=== PATIENT | male | born 1980 | race Caucasian/White ===

== ENCOUNTER 2017-01-25 08:33 | Emergency (ER) | payer OTHER ==
[2017-01-25] MEDS ORDERED: IPRATROPIUM/ALBUTEROL 3 ML NEB INH STA (08:55)
[2017-01-25] MEDS ORDERED: DEXAMETHASONE 10 MG/ML VIAL PO STA (08:56)
--- NOTE | 2017-01-25 09:00 | ED Physician Documentation ---
PD HPI DYSPNEA - Stated complaint Stated Complaint: SOA/COUGH - Chief complaint Chief Complaint: Resp - History obtained from History obtained from: Patient - History of Present Illness Timing - onset: How many weeks ago (3) Timing - duration: Weeks (3) Timing - details: Still present Worsened by: Coughing Associated symptoms: Cough. No: Fever, Chest pain / discomfort Recently seen: Clinic (Was seen in clinic 2 weeks ago and treated with nebulizer which provided temporary improvement. He was prescribed albuterol inhaler and prednisone. He has not completed the prednisone that was prescribed.) - Treatment prior to arrival Treatment prior to arrival: Albuterol inhaler. - Additional information Additional information: The patient is a 36-year-old male who presents with cough and shortness of breath that has been persistent for the past 3 weeks. His cough is nonproductive of sputum. He denies fever, chest pain, nausea or vomiting. He denies history of similar symptoms in the past. He was seen in a walk-in clinic in [place] 2 weeks ago and was treated with DuoNeb nebulizer, which provided temporary improvement for about 24 hours. He was prescribed albuterol nebulizer and prednisone, which he states is not working. Social history is significant for cigarette smoking. 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 Review of Systems Constitutional: denies: Fever Ears: denies: Tinnitus/ringing Nose: denies: Congestion Throat: denies: Sore throat Cardiac: denies: Chest pain / pressure Respiratory: reports: Dyspnea, Cough, Wheezing GI: denies: Abdominal Pain, Nausea, Vomiting : denies: Dysuria Skin: denies: Rash Musculoskeletal: denies: Back pain, Extremity swelling Neurologic: denies: Focal weakness, Numbness, Headache PD PAST MEDICAL HISTORY - Past Medical History Past Medical History: No Cardiovascular: None Neuro: None Endocrine/Autoimmune: None GI: None - Past Surgical History Past Surgical History: No - Present Medications Home Medications: Ambulatory Orders Medication Instructions Recorded Confirmed Albuterol Sulfate [Proventil Hfa 1 - 2 puffs INH Q4H PRN #1 inhaler 01/25/17 Inhaler] Albuterol Sulfate [Proventil Hfa 1 puffs PO BID 01/25/17 01/25/17 Inhaler] Inhaler, Assist Devices 1 each MC PRN PRN #1 spacer 01/25/17 [Aerochamber Mini] Prednisone 20 mg PO DAILY 01/25/17 01/25/17 - Allergies Allergies/Adverse Reactions: Allergies Allergy/AdvReac Type Severity Reaction Status Date / Time No Known Drug Allergies Allergy Verified 02/26/14 15:33 - Social History Does the pt smoke?: Yes Smoking Status: Current every day smoker Does the pt drink ETOH?: No Does the pt have substance abuse?: Yes Substance Use and Type: Marijuana PD ED PE NORMAL - Vitals Vital signs reviewed: Yes (normal) - General General: Alert and oriented X 3, Well developed/nourished - HEENT HEENT: Atraumatic, EOMI, Pharynx benign - Neck Neck: No adenopathy, No JVD - Cardiac Cardiac: RRR, No murmur - Respiratory Respiratory: Other (Diffuse aspiratory wheezing bilaterally, with prolonged expiratory phase.) - Abdomen Abdomen: Soft, Non tender - Derm Derm: No rash - Extremities Extremities: No edema, No calf tenderness / cord - Neuro Neuro: Alert and oriented X 3, No motor deficit, Normal speech Results - Vitals Vitals: Oxygen O2 Source Room air - Rads (name of study) 2-view CXR Radiology: Prelim report reviewed, EMP read contemporaneously, See rad report ( Unremarkable two-view chest.) PD MEDICAL DECISION MAKING - ED course Complexity details: reviewed results, re-evaluated patient, considered differential, d/w patient, d/w family ED course: The patient's presentation is most consistent with asthmatic bronchitis. His presentation does not suggest pneumonia, and his chest x-ray is negative. I doubt pulmonary embolus. Treatment in the emergency department included administration of DuoNeb nebulizer, and dexamethasone 10 mg orally. His symptoms significantly improved with the above treatment, and on reexamination his expiratory wheezing was almost completely resolved. He is being discharged with prescription for albuterol inhaler with AeroChamber. He will resume taking the prednisone that was previously prescribed for him. 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 I also discussed with him the importance of cessation of cigarette smoking. Departure - Departure Disposition: 01 Home, Self Care Clinical Impression: Asthmatic bronchitis with acute exacerbation Qualifiers: Asthma severity: unspecified severity Qualified Code(s): J45.901 - Unspecified asthma with (acute) exacerbation Condition: Stable Instructions: ED Bronchitis Asthmatic Follow-Up: [facility] [Provider Group] Prescriptions: Inhaler, Assist Devices [Aerochamber Mini] 1 each MC PRN PRN #1 spacer PRN Reason: Wheezing Albuterol Sulfate [Proventil Hfa Inhaler] 1 - 2 puffs INH Q4H PRN #1 inhaler PRN Reason: Shortness Of Air/Wheezing Comments: Try to stop smoking cigarettes. Use albuterol inhaler as prescribed. Use the spacer device. Take prednisone as previously prescribed until it is gone. Schedule follow-up appointment with primary physician within 2 weeks. Return to the emergency department if he develops increasing difficulty breathing, or otherwise worsening symptoms. Discharge Date/Time: 01/25/17 10:10
[2017-01-25] MEDS ORDERED: IPRATROPIUM/ALBUTEROL 3 ML NEB INH ONE (09:07)
[2017-01-25] MEDS ORDERED: DEXAMETHASONE 10 MG/ML VIAL ONE (09:16)
--- NOTE | 2017-01-25 09:42 | XRAY Preliminary Report ---
Exam: XR Chest 2 View PA/LAT IMPRESSION: 1. Unremarkable two-view chest. [facility] SITE ID: [id number]
--- NOTE | 2017-01-25 09:45 | XRAY Report ---
EXAM: CHEST RADIOGRAPHY EXAM DATE: 01/25/2017 09:29 AM. CLINICAL HISTORY: Cough, dyspnea. COMPARISON: None. TECHNIQUE: 2 views. FINDINGS: Lungs/Pleura: Clear lungs. No pleural effusion or pneumothorax. Normal volumes. Mediastinum: Heart and mediastinal contours are unremarkable. Bones: No significant findings. IMPRESSION: 1. Unremarkable two-view chest. [facility] Referring Provider Line: [phone] SITE ID: [id number]
[2017-01-25 10:11] VITALS: BP 118/74
== END 2017-01-25 10:10 | disposition home or self-care (01) ==
LOC: ED 08:33
DX: J45.901 Unspecified asthma with (acute) exacerbation (principal); F17.200 Nicotine dependence, unspecified, uncomplicated
CPT/HCPCS: 71020; 99283; 99284; J7620

== ENCOUNTER 2017-02-12 21:34 | Emergency (ER) | payer OTHER ==
[2017-02-12] MEDS ORDERED: IPRATROPIUM/ALBUTEROL 3 ML NEB INH STA ×2 (21:52→22:18)
[2017-02-12] MEDS ORDERED: IPRATROPIUM/ALBUTEROL 3 ML NEB INH ONE ×2 (22:07→22:24)
[2017-02-12] MEDS ORDERED: predniSONE 20 MG TABLET PO STA (22:19)
[2017-02-12] MEDS ORDERED: predniSONE 20 MG TABLET ONE (22:55)
[2017-02-12] MEDS ORDERED: ALBUTEROL NEB 2.5 MG/3 ML INH STA (23:02)
[2017-02-12] MEDS ORDERED: ALBUTEROL NEB 2.5 MG/3 ML INH ONE (23:36)
--- NOTE | 2017-02-12 23:59 | ED Physician Documentation ---
PD HPI DYSPNEA - Stated complaint Stated Complaint: SORE THROAT/COUGH - Chief complaint Chief Complaint: General - History obtained from History obtained from: Patient, Family - History of Present Illness Timing - onset: Yesterday Timing - onset during: Rest Timing - details: Gradual onset, Still present Inciting event(s): Out of meds, Exposure (ie smoke) Improved by: O2, Inhaler/neb Associated symptoms: Cough, Wheezing. No: Fever Similar symptoms before: Work up / diagnostics, Treatment Recently seen: Not recently seen - Additional information Additional information: Patient is a 36 year old male with a history of asthma who is presenting to the emergency department for wheezing, cough and shortness of breath. Patient states that it has been going on for the last couple days. Patient states that his inhaler isnt working. Patient states that he still actively smokes. Review of Systems Constitutional: denies: Fever, Chills Eyes: denies: Photophobia Ears: denies: Ear pain, Drainage/discharge Nose: reports: Congestion. denies: Epistaxis, Sinus pressure / pain Throat: reports: Sore throat. denies: Dental pain / toothache Cardiac: denies: Chest pain / pressure, Palpitations Respiratory: reports: Dyspnea, Cough, Wheezing GI: denies: Nausea, Vomiting : reports: Reviewed and negative Skin: reports: Reviewed and negative Musculoskeletal: denies: Neck pain, Back pain, Extremity pain Neurologic: denies: Generalized weakness, Focal weakness, Altered mental status , Headache Immunocompromised: denies: Immunocompromised PD PAST MEDICAL HISTORY - Past Medical History Past Medical History: No Cardiovascular: None Neuro: None Endocrine/Autoimmune: None GI: None - Past Surgical History Past Surgical History: No - Present Medications Home Medications: Ambulatory Orders Medication Instructions Recorded Confirmed Albuterol Sulfate [Proventil Hfa 1 - 2 puffs INH Q4H PRN #1 inhaler 01/25/17 Inhaler] Albuterol Sulfate [Proventil Hfa 1 puffs PO BID 01/25/17 01/25/17 Inhaler] Inhaler, Assist Devices 1 each MC PRN PRN #1 spacer 01/25/17 [Aerochamber Mini] Prednisone 20 mg PO DAILY 01/25/17 01/25/17 Albuterol Sulfate [Proventil Hfa 1 - 2 puffs INH Q4H PRN #2 inhaler 02/13/17 Inhaler] Benzonatate [Tessalon] 100 mg PO TID #14 capsule 02/13/17 Prednisone 40 mg PO DAILY 5 Days tablet 02/13/17 - Allergies Allergies/Adverse Reactions: Allergies Allergy/AdvReac Type Severity Reaction Status Date / Time No Known Drug Allergies Allergy Verified 02/12/17 21:49 - Social History Does the pt smoke?: Yes Smoking Status: Current every day smoker Does the pt drink ETOH?: No Does the pt have substance abuse?: Yes Substance Use and Type: Marijuana - Immunizations Immunizations are current?: Yes - POLST Patient has POLST: No PD ED PE NORMAL - Vitals Vital signs reviewed: Yes - General General: Alert and oriented X 3, Well developed/nourished - HEENT HEENT: Atraumatic, PERRL - Neck Neck: Supple, no meningeal sign, No JVD - Cardiac Cardiac: RRR, No murmur - Abdomen Abdomen: Soft, Non tender, Non distended - Derm Derm: Normal color, Warm and dry, No rash - Extremities Extremities: No deformity - Neuro Neuro: Alert and oriented X 3, No motor deficit, No sensory deficit, Normal speech - Psych Psych: Normal mood, Normal affect PD ED PE EXPANDED - Respiratory Respiratory: Accessory mm use, Wheezing, Rhonchi, Right upper lobe, Right middle lobe, Right lower lobe, Left upper lobe Results - Vitals Vitals: Vital Signs - 24 hr 02/12/17 02/12/17 02/12/17 21:42 22:05 22:20 Temperature 36.4 C L Heart Rate 115 H 113 H 98 Respiratory 16 18 18 Rate Blood Pressure 131/86 H O2 Saturation 95 02/12/17 02/12/17 02/13/17 23:30 23:49 00:05 Temperature Heart Rate 102 H 101 H Respiratory 18 17 17 Rate Blood Pressure 121/79 O2 Saturation 97 Oxygen O2 Source Room air PD MEDICAL DECISION MAKING - ED course Complexity details: reviewed old records, reviewed results, re-evaluated patient , considered differential, d/w patient, d/w family ED course: Patient was seen and examined at bedside. Patient was treated with a duoneb and steroids. Patient had persistent symptoms and was treated with additional 2 duonebs. Patient responded well to the therapy but still had some wheezing. Patient was started on three albuterol inhalers. Patient responded well and stated he was feeling much better. Prescriptions were written and patient was stable for discharge with outpatient follow up. Departure - Departure Disposition: 01 Home, Self Care Clinical Impression: Asthmatic bronchitis with acute exacerbation Condition: Good Instructions: ED Bronchitis Asthmatic Follow-Up: primary,care provider [Other] - Within 3 Days Prescriptions: Albuterol Sulfate [Proventil Hfa Inhaler] 1 - 2 puffs INH Q4H PRN #2 inhaler PRN Reason: Shortness Of Air/Wheezing Benzonatate [Tessalon] 100 mg PO TID #14 capsule Prednisone 40 mg PO DAILY 5 Days tablet Comments: Your symptoms today are being caused by an exacerbation of your asthma and acute bronchitis. You will need to be on steroids for the next few days. You should continue with the home albuterol every 2 hours as needed. You should follow up with your pmd. You should avoid smoking or any other triggers. You may return to the emergency department at any time as needed for new, worsening or uncontrollable symptoms. Forms: Activity restrictions Discharge Date/Time: 02/13/17 00:05
[2017-02-13 00:16] VITALS: BP 121/79
== END 2017-02-13 00:05 | disposition home or self-care (01) ==
LOC: ED 21:34
DX: J45.901 Unspecified asthma with (acute) exacerbation (principal); F17.200 Nicotine dependence, unspecified, uncomplicated
CPT/HCPCS: 94640; 99283; J7512; J7613; J7620

== ENCOUNTER 2017-03-16 08:12 | Emergency (ER) | payer OTHER ==
--- NOTE | 2017-03-16 08:25 | ED Physician Documentation ---
PD HPI URI - Stated complaint Stated Complaint: ABD/RIB PX COUGH - Chief complaint Chief Complaint: Resp - History obtained from History obtained from: Patient - History of Present Illness Timing - onset: How many months ago (couple months of cough with worse at times. Seen in ED a few times past 2-3 months for cough and wheezing. Seen 3 days ago with Rx steroid, inhaler, and Zpack for ear infection. Has had persistent cough and this mraurea felt abrupt sharp pain right ribs laterally with cough.) Timing duration: Days (worse the past few days), Months Timing details: Abrupt onset (of the right chest/rib pain today), Gradual onset (oif the cough) Associated symptoms: Productive cough (dawkins colored sputum), Chest pain (today) , Dyspnea. No: Fever, Hemoptysis, Bilateral edema Contributing factors: Sick contact Worsened by: Activity Similar symptoms before: Diagnosis (bronchitis, smoking, asthma) Recently seen: Emergency Dept Review of Systems Constitutional: reports: Myalgias. denies: Fever, Chills Nose: reports: Congestion. denies: Rhinorrhea / runny nose Throat: denies: Sore throat Cardiac: reports: Chest pain / pressure (today, right ribs.) Respiratory: reports: Dyspnea, Cough, Wheezing GI: denies: Abdominal Pain, Nausea, Vomiting, Diarrhea Skin: denies: Rash, Lesions PD PAST MEDICAL HISTORY - Past Medical History Cardiovascular: None Neuro: None Endocrine/Autoimmune: None GI: None - Past Surgical History Past Surgical History: No - Present Medications Home Medications: Ambulatory Orders Medication Instructions Recorded Confirmed predniSONE [Prednisone] 20 mg PO DAILY 01/25/17 03/16/17 Albuterol Sulfate [Proventil Hfa 1 - 2 puffs INH Q4H PRN #2 inhaler 02/13/1702/20 Inhaler] predniSONE [Prednisone] 40 mg PO DAILY 5 Days tablet 02/13/17 03/16/17 Azithromycin [Zithromax] 250 mg PO DAILY #6 tablet 03/13/17 03/16/17 Benzonatate [Tessalon] 100 - 200 mg PO TID PRN #20 capsule 03/13/17 03/16/17 predniSONE [Deltasone] 10 mg PO DAILY #26 tablet 03/13/17 03/16/17 HYDROcod/ACETAM 5/325 [[place] 5/325] 1 tab PO Q6H PRN #15 tablet 03/16/17 Naproxen 375 mg PO BID #20 tablet 03/16/17 - Allergies Allergies/Adverse Reactions: Allergies Allergy/AdvReac Type Severity Reaction Status Date / Time No Known Drug Allergies Allergy Verified 03/16/17 08:19 - Social History Does the pt smoke?: Yes Smoking Status: Current every day smoker Does the pt drink ETOH?: No Does the pt have substance abuse?: Yes - Immunizations Immunizations are current?: Yes - POLST Patient has POLST: No PD ED PE NORMAL - Vitals Vital signs reviewed: Yes - General General: Alert and oriented X 3, Well developed/nourished, Other (appears in pain with breathing, due to right lateral rib area. ) - Neck Neck: Supple, no meningeal sign, No adenopathy - Cardiac Cardiac: RRR, No murmur - Respiratory Respiratory: Other (wheezing diffusely. No coarse sounds. ) - Abdomen Abdomen: Soft, Non tender - Back Back: No CVA TTP - Derm Derm: Normal color, Warm and dry - Extremities Extremities: No tenderness to palpate - Neuro Neuro: Alert and oriented X 3, No motor deficit, Normal speech Results - Vitals Vitals: Vital Signs - 24 hr 03/16/17 03/16/17 03/16/17 08:14 09:43 10:33 Temperature 36.2 C L Heart Rate 94 88 87 Respiratory 16 16 16 Rate Blood Pressure 139/88 H 124/75 O2 Saturation 99 96 Oxygen O2 Source Room air - Rads (name of study) chest Radiology: Prelim report reviewed, EMP read contemporaneously (no acute process seen) Departure - Departure Disposition: 01 Home, Self Care Clinical Impression: Right-sided chest pain Asthmatic bronchitis with acute exacerbation Qualifiers: Asthma severity: moderate Asthma persistence: persistent Qualified Code(s): J45.41 - Moderate persistent asthma with (acute) exacerbation Condition: Stable Record reviewed to determine appropriate education?: Yes Instructions: ED Chest Pain Pleurisy Follow-Up: Maddie Nation PA-C [Primary Care Provider] - Prescriptions: HYDROcod/ACETAM 5/325 [[place] 5/325] 1 tab PO Q6H PRN #15 tablet PRN Reason: Pain Naproxen 375 mg PO BID #20 tablet Comments: Drink lots of fluids. Continue your current medications with the exception of holding your prednisone today and resuming the course of it tomorrow. Use naproxen twice daily for pain. Add Tylenol or hydrocodone if needed for pain and cough. Your chest x-ray appears normal without pneumonia, rib fracture, collapsed lung. However can still hurt quite a bit from muscle strain or inflammation around the lung. Discharge Date/Time: 03/16/17 10:33
[2017-03-16] MEDS ORDERED: HYDROcod/ACETAM 5/325 MG TABLET PO STA (08:37)
[2017-03-16] MEDS ORDERED: ALBUTEROL NEB 2.5 MG/3 ML INH STA (08:37)
[2017-03-16] MEDS ORDERED: BENZONATATE 100 MG CAPSULE PO STA (08:37)
[2017-03-16] MEDS ORDERED: KETOROLAC 30 MG/ML VIAL IM STA (08:37)
[2017-03-16] MEDS ORDERED: DEXAMETHASONE 10 MG/ML VIAL PO STA (08:49)
[2017-03-16] MEDS ORDERED: IBUPROFEN 600 MG TABLET PO STA (08:51)
[2017-03-16] MEDS ORDERED: BENZONATATE 100 MG CAPSULE PO ONE (08:58)
[2017-03-16] MEDS ORDERED: HYDROcod/ACETAM 5/325 MG TABLET ONE (08:59)
[2017-03-16] MEDS ORDERED: IBUPROFEN 600 MG TABLET PO ONE (08:59)
--- NOTE | 2017-03-16 08:59 | XRAY Preliminary Report ---
Exam: XR CHEST 2 VIEW PA/LAT IMPRESSION: Normal 2-view chest radiography. [facility] SITE ID: [id number]
[2017-03-16] MEDS ORDERED: ALBUTEROL NEB 2.5 MG/3 ML INH ONE (09:01)
--- NOTE | 2017-03-16 09:01 | XRAY Report ---
EXAM: CHEST RADIOGRAPHY EXAM DATE: 03/16/2017 08:45 AM. CLINICAL HISTORY: Right rib pain 1 day after cough. Cough for 3 months. COMPARISON: 03/13/2017. TECHNIQUE: 2 views. FINDINGS: Lungs/Pleura: No focal opacities evident. No pleural effusion. No pneumothorax. Normal volumes. Mediastinum: Heart and mediastinal contours are unremarkable. Other: No displaced rib fracture evident. IMPRESSION: Normal 2-view chest radiography. [facility] Referring Provider Line: [phone] SITE ID: [id number]
[2017-03-16] MEDS ORDERED: DEXAMETHASONE 10 MG/ML VIAL ONE (09:05)
[2017-03-16] MEDS ORDERED: CHERRY SYRUP 10 ML UDC PO ONE (09:05)
[2017-03-16 10:33] VITALS: BP 124/75
== END 2017-03-16 10:33 | disposition home or self-care (01) ==
LOC: ED 08:12
DX: J45.41 Moderate persistent asthma with (acute) exacerbation (principal); R07.9 Chest pain, unspecified; F17.200 Nicotine dependence, unspecified, uncomplicated
CPT/HCPCS: 71020; 94640; 99283; 99284; A9270; J7613

== ENCOUNTER 2017-04-04 23:53 | Observation (INO) | payer OTHER ==
[2017-04-05] MEDS ORDERED: IPRATROPIUM/ALBUTEROL 3 ML NEB INH STA (00:12)
[2017-04-05] MEDS ORDERED: IPRATROPIUM/ALBUTEROL 3 ML NEB INH ONE (00:30)
--- NOTE | 2017-04-05 00:34 | ED Physician Documentation ---
PD HPI DYSPNEA - Stated complaint Stated Complaint: COUGH,NEAR SYNCOPE - Chief complaint Chief Complaint: Resp - History obtained from History obtained from: Patient, Family - History of Present Illness Timing - onset: Chronic Timing - onset during: Rest Timing - details: Gradual onset, Still present Inciting event(s): URI, Exposure (ie smoke) Improved by: O2, Inhaler/neb Worsened by: Exertion, Coughing Associated symptoms: Cough, Wheezing. No: Fever, Chest pain / discomfort, Diaphoresis Similar symptoms before: Work up / diagnostics, Treatment, Follow up Recently seen: Clinic - Additional information Additional information: Patient is a 37 year old male diagnosed with severe asthma who is presenting to the emergency department for wheezing and syncope. According to patient and girlfriend tonight patient had a coughing fit and due to all the coughing the patient had a syncopal episode. Patient states that he has quit smoking over the last couple of weeks but states that he did smoke marijuana just prior to the episode. 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 patient states that there are a few other people at work with similar symptoms. 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 Patient does admit to smoking marijuana daily. Review of Systems Constitutional: denies: Fever, Chills Eyes: denies: Decreased vision, Photophobia Ears: denies: Ear pain, Drainage/discharge Nose: denies: Congestion Throat: denies: Sore throat Cardiac: denies: Chest pain / pressure, Palpitations Respiratory: reports: Dyspnea, Cough, Wheezing GI: denies: Nausea, Vomiting : denies: Dysuria, Frequency, Hesitancy Skin: denies: Rash, Lesions Neurologic: reports: Syncope. denies: Headache, Head injury Immunocompromised: denies: Immunocompromised PD PAST MEDICAL HISTORY - Past Medical History Past Medical History: Yes Cardiovascular: None Respiratory: Asthma Neuro: None Endocrine/Autoimmune: None GI: None - Past Surgical History Past Surgical History: No - Present Medications Home Medications: Ambulatory Orders Medication Instructions Recorded Confirmed predniSONE [Prednisone] 20 mg PO DAILY 01/25/17 03/16/17 Albuterol Sulfate [Proventil Hfa 1 - 2 puffs INH Q4H PRN #2 inhaler 02/13/1702/20 Inhaler] predniSONE [Prednisone] 40 mg PO DAILY 5 Days tablet 02/13/17 03/16/17 Azithromycin [Zithromax] 250 mg PO DAILY #6 tablet 03/13/17 03/16/17 Benzonatate [Tessalon] 100 - 200 mg PO TID PRN #20 capsule 03/13/17 03/16/17 predniSONE [Deltasone] 10 mg PO DAILY #26 tablet 03/13/17 03/16/17 HYDROcod/ACETAM 5/325 [[place] 5/325] 1 tab PO Q6H PRN #15 tablet 03/16/17 Naproxen 375 mg PO BID #20 tablet 03/16/17 predniSONE [Prednisone] 40 mg PO DAILY 5 Days tablet 04/05/17 - Allergies Allergies/Adverse Reactions: Allergies Allergy/AdvReac Type Severity Reaction Status Date / Time No Known Drug Allergies Allergy Verified 03/16/17 08:19 - Social History Does the pt smoke?: Yes Smoking Status: Current some day smoker Does the pt drink ETOH?: No Does the pt have substance abuse?: Yes - Immunizations Immunizations are current?: Yes - POLST Patient has POLST: No PD ED PE NORMAL - Vitals Vital signs reviewed: Yes - General General: Alert and oriented X 3, Well developed/nourished - HEENT HEENT: Atraumatic, PERRL, Moist mucous membranes - Neck Neck: Supple, no meningeal sign, No JVD - Cardiac Cardiac: RRR, No murmur - Abdomen Abdomen: Soft, Non tender, Non distended - Derm Derm: Normal color, Warm and dry, No rash - Extremities Extremities: No deformity, Normal ROM s pain, No calf tenderness / cord - Neuro Neuro: Alert and oriented X 3, No motor deficit, No sensory deficit, Normal speech - Psych Psych: Normal mood PD ED PE EXPANDED - Respiratory Respiratory: Wheezing, Rhonchi, Right upper lobe, Right middle lobe, Right lower lobe, Left upper lobe, Left lower lobe. No: Accessory mm use Results - Vitals Vitals: Vital Signs - 24 hr 04/05/17 04/05/17 04/05/17 00:00 00:20 01:20 Temperature 36.9 C Heart Rate 102 H 98 95 Respiratory 20 18 18 Rate Blood Pressure 151/93 H O2 Saturation 94 Oxygen O2 Source Room air - Rads (name of study) chest x-ray Radiology: Final report received (normal chest x-ray) PD MEDICAL DECISION MAKING - ED course Complexity details: reviewed old records, reviewed results, re-evaluated patient , considered differential, d/w patient, d/w family ED course: Patient was seen and examined at bedside. Patient was not hypoxic but he had diffuse wheezing. three duonebs were ordered. After the treatments patient stated that he felt much better but his wheezing was still significant. patient was treated with 3 albuterol treatments, solumedrol, terbutaline, magnesium and a chest x-ray was ordered. Chest x-ray was within normal limits and sputum cultures were sent. Patient responded very well to the therapy and his wheezing decreased significantly. Patient stated that he felt much better and was ready to go home. Patient had good oxygenation, minimal wheeze and was stable for discharge with outpatient follow up. Departure - Departure Disposition: 01 Home, Self Care Clinical Impression: Asthmatic bronchitis with acute exacerbation Condition: Good Instructions: ED Bronchitis Asthmatic Follow-Up: Maddie Nation PA-C [Primary Care Provider] - Within 3 Days Prescriptions: predniSONE [Prednisone] 40 mg PO DAILY 5 Days tablet Comments: Your symptoms today are being caused by an exacerbation of your asthma and bronchitis. You will need to avoid any triggers and any type of smoke. If your sputum cultures results are abnormal you will be called in the next three days. Otherwise continue with your steroids any your home medications. You should follow up with your pmd and you may return to the emergency department at any time if necessary for new, worsening or uncontrollable symptoms.
[2017-04-05] MEDS ORDERED: ALBUTEROL NEB 2.5 MG/3 ML INH STA (01:01)
[2017-04-05] MEDS ORDERED: MAGNESIUM SULFATE 2 GRAM 2 GM/50 ML BAG IV ONE ×2 (01:01→01:22)
[2017-04-05] MEDS ORDERED: methylPREDNISolone SUCCINATE 125 MG/2 ML VIAL IVP STA (01:02)
[2017-04-05] MEDS ORDERED: TERBUTALINE 1 MG/ML VIAL SUBQ ONE (01:14)
[2017-04-05] MEDS ORDERED: methylPREDNISolone SUCCINATE 125 MG/2 ML VIAL ONE (01:22)
[2017-04-05] MEDS ORDERED: ALBUTEROL NEB 2.5 MG/3 ML INH ONE (01:25)
--- NOTE | 2017-04-05 01:33 | XRAY Preliminary Report ---
Exam: XR CHEST 2 VIEW PA/LAT IMPRESSION: Stable normal appearance of the chest. [facility] SITE ID: [id number]
--- NOTE | 2017-04-05 01:35 | XRAY Report ---
EXAM: CHEST RADIOGRAPHY EXAM DATE: 04/05/2017 01:16 AM. CLINICAL HISTORY: Persist cough, shortness of breath. Shortness of breath. COMPARISON: 03/16/2017 TECHNIQUE: 2 views. FINDINGS: Lungs/Pleura: No focal opacities evident. No pleural effusion. No pneumothorax. Normal volumes. Mediastinum: Heart and mediastinal contours are unremarkable. Other: None. IMPRESSION: Stable normal appearance of the chest. [facility] Referring Provider Line: [phone] SITE ID: [id number]
[2017-04-05] MEDS ORDERED: ACETAMINOPHEN 325 MG TABLET PO PRN (04:02)
[2017-04-05] MEDS ORDERED: ONDANSETRON 4 MG/2 ML VIAL IVP PRN (04:02)
[2017-04-05] MEDS ORDERED: SODIUM CHLORIDE FLUSH 0.9% 10 ML SYRINGE IVP PRN (04:02)
[2017-04-05] MEDS ORDERED: guaiFENesin/DEXTROMETHORPHAN 10 ML UDC PO PRN (04:07)
[2017-04-05 04:28] LABS: BASOPHILS % (AUTO) 0.4 %; EOSINOPHILS # (AUTO) 0.1 10^3/uL (0.0-0.7); EOSINOPHILS % (AUTO) 1.1 %; LYMPHOCYTES % (AUTO) 8.4 %; MEAN CORPUSCULAR HEMOGLOBIN 31.3 pg (27.0-31.0); MEAN CORPUSCULAR HGB CONC 33.3 g/dL (32.0-36.0); MEAN CORPUSCULAR VOLUME 93.9 fL (80.0-94.0); MEAN PLATELET VOLUME 7.6 fL (7.4-11.4); MONOCYTES # (AUTO) 0.3 10^3/uL (0.0-1.0); MONOCYTES % (AUTO) 2.3 %; NEUTROPHILS # (AUTO) 10.1 10^3/uL (1.5-6.6); NEUTROPHILS % (AUTO) 87.8 %; RED BLOOD COUNT 4.79 10^6/uL (4.70-6.10); RED CELL DISTRIBUTION WIDTH 12.9 % (12.0-15.0); UNCORRECTED WHITE BLOOD COUNT 11.4 x10^3/uL; WHITE BLOOD COUNT 11.4 x10^3/uL (4.8-10.8)
[2017-04-05] MEDS: IPRATROPIUM/ALBUTEROL 3 ML NEB INH SCH ×3 (04:30→10:00)
[2017-04-05 04:42] LABS: ALBUMIN/GLOBULIN RATIO 1.4 (1.0-2.2); BILIRUBIN,TOTAL 0.8 mg/dL (0.2-1.0); CALCIUM 9.2 mg/dL (8.5-10.3); POTASSIUM 3.4 mmol/L (3.5-5.0); TOTAL PROTEIN 7.7 g/dL (6.7-8.2)
[2017-04-05] MEDS: guaiFENesin 600 MG TABLET PO SCH ×2 (04:50→08:52)
[2017-04-05] MEDS ORDERED: BUDESONIDE/FORMOTEROL 160/4.5 MCG INHALER INH SCH (05:00)
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
[2017-04-05] MEDS ORDERED: PANTOPRAZOLE 40 MG TABLET PO SCH (07:00)
[2017-04-05] MEDS ORDERED: FORMOTEROL FUMARATE NEB 20 MCG/2 ML INH SCH (07:00)
[2017-04-05] MEDS ORDERED: BUDESONIDE 0.5 MG/2 ML NEB INH SCH (07:00)
[2017-04-05] MEDS: methylPREDNISolone SUCCINATE 40 MG/ML VIAL IVP SCH ×2 (07:41→13:10)
[2017-04-05] MEDS: SODIUM CHLORIDE FLUSH 0.9% 10 ML SYRINGE IVP SCH ×2 (07:43→13:10)
[2017-04-05] MEDS ORDERED: ALBUTEROL NEB 2.5 MG/3 ML INH PRN (08:42)
[2017-04-05] MEDS ORDERED: ENOXAPARIN 40 MG/0.4 ML SYRINGE SUBQ SCH (09:00)
[2017-04-05] MEDS ORDERED: POLYETHYLENE GLYCOL 3350 17 GM PACKET PO SCH (09:00)
[2017-04-05] MEDS ORDERED: POTASSIUM CHLORIDE 20 MEQ TABLET PO SCH (09:00)
--- NOTE | 2017-04-05 11:33 | XRAY Report ---
FRONTAL CHEST: 04/05/2017 CLINICAL INDICATION: Cough, shortness of breath. COMPARISON: Film of 0106 hours the same day. FINDINGS: Frontal view of the chest demonstrates a normal cardiac silhouette. The lungs remain soraya r. No effusion or pneumothorax is seen. IMPRESSION: NORMAL CHEST, UNCHANGED. JOB #: [id number] EXT JOB #:[id number]
[2017-04-05 14:13] VITALS: BP 125/73
--- NOTE | 2017-04-05 14:34 | Discharge Plan ---
Discharge Plan Disposition: 01 Home, Self Care Condition: Stable Diet: Regular Activity Restrictions: Activity as Tolerated Shower Restrictions: No Driving Restrictions: No Weight Bearing: Full Weight Instruction Topics: Heart Attack Sx, Electrocardiogram, Triggers Asthma, Triggers Control, Heart Risk, Heart Risk Identifying, Heart Attack Warning Signs , ED Bronchitis Asthmatic Additional Instructions or Follow Up instructions: May see PCP in three or four days, and historical site guide in the schedule. Pt is advised to avoid illicit drugs. Pt requests to be discharged today. Pt state he will do ECHO as out-pt if he think it is necessary. Pt's symptoms today may be caused by an exacerbation of your asthma. Pt is advised to avoid any triggers, any type of smoke and illicit drugs. Pt is advised to return to the emergency department or call 911 at any time if return , new, worsening or uncontrollable symptoms. [facility]-Up Care: [facility], [facility] No Smoking: If you smoke, Please STOP! Call for help. Follow-up with: Maddie Nation PA-C [Primary Care Provider] - Within 3 Days
--- NOTE | 2017-04-05 14:50 | DISCHARGE SUMMARY ---
Discharge Summary Discharge Date: 04/05/17 Discharging Provider: MANSFIELD Primary Care Provider: Maddie Lopez Condition at Discharge: Stable Discharge Disposition: 01 Home, Self Care Discharge Facility Name: home - DIAGNOSES Admission Diagnoses: Asthma exacerbation shortness of breath tachycardia Discharge Diagnoses with Status of Each Condition: Asthma exacerbation pt denies shortness of breath more, denies chest pain, or chest tightness. saturation at 95% on room air shortness of breath resolved tachycardia pt denies palpitation, chest pain. pt state he may have marijuana, methamphetamine and amphetamine with his friend. pt is positive methamphetamine and amphetamine and marijuana in [facility]. pt is advised to avoid the illicit drugs. pt request to be d/c to home . pt state he will do ECHO at out-pt as he think it is necessary. illicit drug abuse pt is advised to avoid illicit drugs. - HPI History of Present Illness: please review HPI from Dr. Mejía' HPI on 04/05/17 - HOSPITAL COURSE Hospital Course: pt was admitted for asthma exacerbation, hypoxia and tachycardia, possible black out. pt denies any chest pain. After pt was treated with steroid and INH. Pt's wheezing is controlled. Saturation of O2 in room air is 95%. EKG indicates sinus tachycardia. Pt denies cheat pain, shortness of breath, palpitation. Pt was ordered to have ECHO. The tech of ECHO is off today. Pt is noted for this situation. But Pt refused to stay to have ECHO at hospital. Pt request to be D/ C today and state" I will do ECHO as out-pt when I think it is necessary." Pt was found positive methamphetamine and amphetamine, Marijuana at [facility]. PT was advised to avoid these illicit drugs - ALLERGIES Allergies/Adverse Reactions: Allergies Allergy/AdvReac Type Severity Reaction Status Date / Time Sulfa (Sulfonamide Allergy Itching Verified 04/05/17 06:21 Antibiotics) hydrocodone [From Vicodin] AdvReac Dizziness Verified 04/05/17 06:21 tramadol AdvReac Dizziness Verified 04/05/17 06:21 - MEDICATIONS Home Medications: Ambulatory Orders Medication Instructions Recorded Confirmed Albuterol Sulfate [Proventil Hfa 1 - 2 puffs INH Q4H PRN #2 inhaler 02/13/17 Inhaler] Benzonatate [Tessalon] 100 - 200 mg PO TID PRN #20 capsule 03/13/17 04/05/17 Fluticasone/Salmeterol [Advair 1 each INH BID 04/05/17 04/05/17 250-50 Diskus] predniSONE [Prednisone] 40 mg PO DAILY 04/05/17 04/05/17 - PHYSICAL EXAM AT DISCHARGE General Appearance: positive: No acute distress, Alert. negative: Lethargic Eyes Bilateral: positive: Normal inspection, PERRL. negative: No lid inflammation, Conjunctivae nml ENT: positive: ENT inspection nml, Pharynx nml, No signs of dehydration. negative: Purulent nasal drainage, Pharyngeal erythema, Oral lesions Neck: positive: Nml inspection, Thyroid nml, No JVD, Trachea midline. negative : Thyromegaly, Lymphadenopathy (R), Lymphadenopathy (L), Stiff neck, Carotid bruit, Swelling/bruising, Tracheal deviation Respiratory: positive: Chest non-tender, No respiratory distress, Breath sounds nml. negative: Wheezes, Rales, Rhonchi Cardiovascular: positive: Regular rate & rhythm, No murmur, No gallop, Tachycardia. negative: Irregularly irregular, Extrasystoles, Bradycardia, Systolic murmur, Diastolic murmur Peripheral Pulses: positive: 2+ Abdomen: positive: Non-tender, No organomegaly, Nml bowel sounds, No distention. negative: Tenderness, Guarding, Rebound Back: positive: Nml inspection. negative: CVA tenderness (R), CVA tenderness (L ) Skin: positive: Color nml, No rash, Warm, Dry. negative: Cyanosis, Diaphoresis , Pallor, Skin rash, Decubitus Extremities: positive: Non-tender, Full ROM, Nml appearance. negative: Calf tenderness, Joint swelling, Jase's sign/cords Neurologic/Psychiatric: positive: Oriented x3, Motor nml, Sensation nml, Mood/ affect nml. negative: Sensory loss, Facial droop, Slurred/abnml speech, Depressed mood/affect - LABS Result Diagrams: 04/05/17 04:19 04/05/17 04:19 - FOLLOW UP Follow Up: Pt is advised to follow up PCP and pulomonologist in one week. pt request to be D/C to home. Pt state he will do ECHO when he think it is necessary. pt is advised to avoid illicit drugs. Pt is advised, should symptoms returns or worsens, present ER or call 911 for help, and Pt is welcomed to our service.
== END 2017-04-05 15:10 | disposition home or self-care (01) ==
LOC: ED 23:53 → OBS 04-05 04:02
PROVIDERS: ADMIT Internal Medicine; ATTEND Internal Medicine
DX: J45.901 Unspecified asthma with (acute) exacerbation (principal); Z72.89 Other problems related to lifestyle; R00.0 Tachycardia, unspecified; R09.02 Hypoxemia; Z79.51 Long term (current) use of inhaled steroids; Z79.52 Long term (current) use of systemic steroids; Z79.899 Other long term (current) drug therapy; Z87.891 Personal history of nicotine dependence; Z82.5 Family history of asthma and other chronic lower respiratory diseases
CPT/HCPCS: 36415; 71010; 71020; 80053; 80306; 85025; 85379; 87070; 87205; 87275; 87276; 93005; 94640; 96365; 96372; 96375; 96376; 99218; 99283; 99284; 99285; A9270; J7613; J7620; J7626

== ENCOUNTER 2017-04-21 13:25 | Emergency (ER) | payer OTHER ==
--- NOTE | 2017-04-21 14:09 | ED Physician Documentation ---
History of Present Illness - Stated complaint Stated Complaint: R RIB PAIN - Chief complaint Chief Complaint: General - History obtained from History obtained from: Patient, Family - History of Present Illness Timing: Today Pain level max: 8 Pain level now: 8 Improved by: rest Worsened by: movement, coughing - Additonal information Additional information: Patient is a 37-year-old male who presents to the emergency department with right rib pain after coughing. States felt like a sharp pain. This is happened to him in the past. He does smoke as well as use marijuana. states this started with smoking marijuana. Has been positive for methamphetamine in the past as well. He denies any recent methamphetamine use. He states he took a 30 mg Percocet prior to arrival. He states that he is not using his inhaler at home. Does occasionally use a nebulizer. Is currently on a steroid taper. Denies any fevers. Cough is mostly dry. Review of Systems Ten Systems: 10 systems reviewed and negative Constitutional: denies: Fever, Chills Ears: denies: Ear pain Nose: denies: Rhinorrhea / runny nose, Congestion Throat: denies: Sore throat Cardiac: denies: Chest pain / pressure Respiratory: reports: Cough, Wheezing. denies: Hemoptysis GI: denies: Abdominal Pain, Nausea, Vomiting, Diarrhea Skin: denies: Rash Musculoskeletal: denies: Neck pain, Back pain Neurologic: denies: Headache PD PAST MEDICAL HISTORY - Past Medical History Past Medical History: Yes Cardiovascular: None Respiratory: Asthma Neuro: None Endocrine/Autoimmune: None GI: None : None HEENT: Other Musculoskeletal: None Derm: None - Past Surgical History Past Surgical History: No HEENT: Tonsil/Adenoidectomy - Present Medications Home Medications: Ambulatory Orders Medication Instructions Recorded Confirmed Albuterol Sulfate [Proventil Hfa 1 - 2 puffs INH Q4H PRN #2 inhaler 02/13/17 Inhaler] Benzonatate [Tessalon] 100 - 200 mg PO TID PRN #20 capsule 03/13/17 04/21/17 predniSONE [Prednisone] 40 mg PO DAILY 04/05/17 04/21/17 Fluticasone/Salmeterol [Advair 1 each IH 04/21/17 250-50 Diskus] Lidocaine Patch 5% [Lidoderm Patch] 1 patch TOP DAILY PRN #10 patch 04/21/17 Oxycodone HCl/Acetaminophen 1 - 2 each PO Q6H PRN #14 tablet 04/21/17 [Percocet 5-325 mg Tablet] - Allergies Allergies/Adverse Reactions: Allergies Allergy/AdvReac Type Severity Reaction Status Date / Time Sulfa (Sulfonamide Allergy Itching Verified 04/21/17 13:46 Antibiotics) hydrocodone [From Vicodin] AdvReac Dizziness Verified 04/05/17 06:21 tramadol AdvReac Dizziness Verified 04/05/17 06:21 - Social History Does the pt smoke?: Yes Smoking Status: Current every day smoker Does the pt drink ETOH?: No Does the pt have substance abuse?: Yes - Immunizations Immunizations are current?: Yes - POLST Patient has POLST: No PD ED PE NORMAL - Vitals Vital signs reviewed: Yes - General General: Alert and oriented X 3, No acute distress - HEENT HEENT: PERRL, Ears normal, Moist mucous membranes, Pharynx benign - Neck Neck: Supple, no meningeal sign - Cardiac Cardiac: RRR - Respiratory Respiratory: No respiratory distress, Other (wheezing B. TTP over the anterior R ribs, 8-10. no crepitus. no ecchymosis. no deformity.) - Abdomen Abdomen: Soft, Non tender, Non distended - Derm Derm: Warm and dry - Neuro Neuro: Alert and oriented X 3 - Psych Psych: Normal mood, Normal affect Results - Vitals Vitals: Vital Signs - 24 hr 04/21/17 04/21/17 13:44 15:06 Temperature 37.6 C H 36.7 C Heart Rate 98 92 Respiratory 18 18 Rate Blood Pressure 138/89 H 136/92 H O2 Saturation 94 95 Oxygen O2 Source Room air - Rads (name of study) R rib xray Radiology: Prelim report reviewed, EMP read contemporaneously, See rad report ( Minimally displaced fractures of the lateral right sixth and seventh ribs. No pneumothorax.) PD MEDICAL DECISION MAKING - ED course Complexity details: reviewed old records, reviewed results, re-evaluated patient , considered differential, d/w patient, d/w family ED course: Patient is a 37-year-old male with right rib pain after coughing. He refuses any nebulizer treatments here for his wheezing. He states that last time they did not give him an answer and just "gave him pain meds. He states that he thinks he should have an MRI done. Explained to the patient that an MRI was not indicated at this point. We will start with the rib x-rays as it is likely that he cracked a rib from coughing or injured cartilage. Chest x-ray reveals 2 mildly displaced rib fractures. No pneumothorax. Will prescribe pain medications and Lidoderm patches for home. Patient counseled regarding signs and symptoms for which I believe and urgent re-evaluation would be necessary. Patient with good understanding of and agreement to plan and is comfortable going home at this time This document was made in part using voice recognition software. While efforts are made to proofread this document, sound alike and grammatical errors may occur. Departure - Departure Disposition: 01 Home, Self Care Clinical Impression: Ribs, multiple fractures Qualifiers: Encounter type: initial encounter Fracture type: closed Laterality: right Qualified Code(s): S22.41XA - Multiple fractures of ribs, right side, initial encounter for closed fracture Condition: Good Instructions: ED Fx Rib Follow-Up: Maddie Nation PA-C [Primary Care Provider] - Within 1 week Prescriptions: Lidocaine Patch 5% [Lidoderm Patch] 1 patch TOP DAILY PRN #10 patch PRN Reason: pain Oxycodone HCl/Acetaminophen [Percocet 5-325 mg Tablet] 1 - 2 each PO Q6H PRN # 14 tablet PRN Reason: pain Comments: These may take several weeks to heal. Continue your other medications at home. Follow-up with your doctor for further care. Do not drink alcohol or drive while on narcotic pain medicine. Note that many narcotic pain relievers also contain tylenol/acetaminophen. Please ensure that your total dose of acetaminophen from all sources does not exceed 3 grams (3000mg) per day. You may constipated on this medication, take a stool softener such as "Colace" twice a day while you are on it. Also recommend a [id number] laxative such as senna or MiraLAX any day that you do not have a bowel movement. If you received narcotic pain medication in the emergency department, do not drive or operate machinery for the next 24 hours. Discharge Date/Time: 04/21/17 15:06
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
--- NOTE | 2017-04-21 14:52 | XRAY Report ---
EXAM: RIGHT RIB RADIOGRAPHY EXAM DATE: 04/21/2017 02:33 PM. CLINICAL HISTORY: R rib pain with coughing. COMPARISON: Chest x-ray 04/05/2017. TECHNIQUE: 1 view of the chest and 2 views of the ribs. FINDINGS: Bones: There are minimally displaced fractures of the lateral right sixth and seventh ribs. Lungs: No focal opacities. No pneumothorax. No pleural effusions. Mediastinum: Heart and mediastinal contours are unremarkable. Other: None. IMPRESSION: Minimally displaced fractures of the lateral right sixth and seventh ribs. No pneumothora x. [facility] Referring Provider Line: [phone] SITE ID: [id number]
[2017-04-21] MEDS ORDERED: LIDOCAINE PATCH 5% TOP STA (14:58)
[2017-04-21 15:11] VITALS: BP 136/92
== END 2017-04-21 15:06 | disposition home or self-care (01) ==
LOC: ED 13:25
DX: S22.41XA Multiple fractures of ribs, right side, initial encounter for closed fracture (principal); X58.XXXA Exposure to other specified factors, initial encounter; F12.10 Cannabis abuse, uncomplicated; J45.909 Unspecified asthma, uncomplicated; F17.200 Nicotine dependence, unspecified, uncomplicated
CPT/HCPCS: 71101; 99283; 99284; A9270

== ENCOUNTER 2018-01-24 23:27 | Emergency (ER) | payer OTHER ==
[2018-01-25] MEDS ORDERED: LIDOCAINE VISCOUS 2% 15 ML UDC MM STA (00:19)
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
[2018-01-25] MEDS ORDERED: oxyCODONE 5 MG TABLET PO STA (01:12)
[2018-01-25] MEDS ORDERED: BACITRACIN OINT TOP STA (02:08)
[2018-01-25 02:31] VITALS: BP 97/72
== END 2018-01-25 02:29 | disposition home or self-care (01) ==
LOC: ED 23:27
DX: S60.512A Abrasion of left hand, initial encounter (principal); S50.811A Abrasion of right forearm, initial encounter; Y09 Assault by unspecified means; F17.200 Nicotine dependence, unspecified, uncomplicated
CPT/HCPCS: 99283; A9270

== ENCOUNTER 2018-11-26 20:18 | Emergency (ER) | payer SELFPAY ==
[2018-11-26] MEDS ORDERED: AMOX/CLAV 875 MG/125 MG TABLET PO STA (20:38)
[2018-11-26] MEDS ORDERED: oxyCODONE 5 MG TABLET PO STA (20:38)
[2018-11-26] MEDS ORDERED: BUFFERED LIDOCAINE 10 ML SYRINGE SUBQ STA (20:38)
[2018-11-26] MEDS ORDERED: TETANUS/DIPHTHERIA/PERTUSSIS 0.5 ML SYRINGE IM ONE (20:39)
--- NOTE | 2018-11-26 20:40 | ED Physician Documentation ---
PD HPI HEAD INJURY - Stated complaint Stated Complaint: BOTTOM LIP LAC - Chief complaint Chief Complaint: Laceration - History obtained from History obtained from: Patient - History of Present Illness Mechanism of head injury: Blow (Playing softball just prior to arrival and hit another player with a tooth going through his lower lip. Tetanus is unknown. No loss of consciousness.) Review of Systems Constitutional: denies: Fever, Chills Respiratory: denies: Dyspnea, Cough GI: denies: Vomiting, Diarrhea PD PAST MEDICAL HISTORY - Past Medical History Cardiovascular: None Respiratory: Asthma Endocrine/Autoimmune: None GI: None : None HEENT: Other Musculoskeletal: None Derm: None - Past Surgical History Past Surgical History: No HEENT: Tonsil/Adenoidectomy - Present Medications Home Medications: Ambulatory Orders Medication Instructions Recorded Confirmed Albuterol Sulfate [Proventil Hfa 1 - 2 puffs INH Q4H PRN #2 inhaler 02/13/17 04/21/17 Inhaler] Benzonatate [Tessalon] 100 - 200 mg PO TID PRN #20 capsule 03/13/17 04/21/17 predniSONE [Prednisone] 40 mg PO DAILY 04/05/17 04/21/17 Fluticasone/Salmeterol [Advair 1 each IH 04/21/17 250-50 Diskus] Lidocaine Patch 5% [Lidoderm Patch] 1 patch TOP DAILY PRN #10 patch 04/21/17 Oxycodone HCl/Acetaminophen 1 - 2 each PO Q6H PRN #14 tablet 04/21/17 [Percocet 5-325 mg Tablet] Cephalexin [Keflex] 500 mg PO TID #15 capsule 01/25/18 Lidocaine Ointment 5% [Xylocaine 1 film TOP QID PRN #1 tube 01/25/18 Ointment 5%] oxyCODONE/ACET 5/325 [Percocet 5 1 - 2 each PO Q6H PRN #14 tablet 01/25/18 mg/325 mg] Amox/Clav 875/125 [Augmentin] 1 each PO Q12H #14 tablet 11/26/18 Oxycodone HCl/Acetaminophen 1 - 2 each PO Q6H PRN #7 tablet 11/26/18 [Percocet 5-325 mg Tablet] - Allergies Allergies/Adverse Reactions: Allergies Allergy/AdvReac Type Severity Reaction Status Date / Time Sulfa (Sulfonamide Allergy Itching Verified 11/26/18 20:26 Antibiotics) hydrocodone [From Vicodin] AdvReac Dizziness Verified 11/26/18 20:26 tramadol AdvReac Dizziness Verified 11/26/18 20:26 - Social History Does the pt smoke?: Yes Smoking Status: Current every day smoker Does the pt drink ETOH?: No Does the pt have substance abuse?: Yes - Immunizations Immunizations are current?: Yes - POLST Patient has POLST: No PD ED PE NORMAL - Vitals Vital signs reviewed: Yes - General General: Alert and oriented X 3, No acute distress - HEENT HEENT: PERRL, EOMI, Other (No loose teeth or facial bony tenderness. He has a through and through laceration of the lower lip in the midline, horizontal with a 1 cm component both externally and internally.) - Neuro Neuro: Alert and oriented X 3, vapor coater 2-12 intact, Normal speech Eye Opening: Spontaneous Motor: Obeys Commands Verbal: Oriented GCS Score: 15 - Psych Psych: Normal mood, Normal affect Results - Vitals Vitals: Vital Signs - 24 hr 11/26/18 20:23 Temperature 36.6 C Heart Rate 108 H Respiratory 16 Rate Blood Pressure 150/91 H O2 Saturation 98 Oxygen O2 Source Room air Procedures - Laceration (location) lower lip Length in cm: 2 Wound type: Other (Through and through lip laceration, irrigated thoroughly with saline and anesthetized with 1% buffered lidocaine. The internal component was closed with a single subcuticular 5-0 Vicryl stitch and the external component was closed with 3X6-0 Prolene sutures in simple interrupted fashion.) Complexity: Simple Departure - Departure Disposition: 01 Home, Self Care Clinical Impression: Lip laceration Qualifiers: Encounter type: initial encounter Qualified Code(s): S01.511A - Laceration without foreign body of lip, initial encounter Condition: Good Record reviewed to determine appropriate education?: Yes Instructions: ED Laceration Mouth Prescriptions: Amox/Clav 875/125 [Augmentin] 1 each PO Q12H #14 tablet Oxycodone HCl/Acetaminophen [Percocet 5-325 mg Tablet] 1 - 2 each PO Q6H PRN #7 tablet PRN Reason: pain Comments: Come back for any signs of infection which would include: Redness, swelling, d rainage, increased pain, or fevers. You can wash it soap and water. Keep it covered and moist with bacitracin ointment which is available over the counter; avoid neosporin. Follow-up with your physician in 6-7 days for suture removal. Your blood pressure was elevated today on check into the emergency department. This does not mean that you have hypertension, it is a common phenomenon to come to the emergency department and have elevated blood pressure. I recommend that you see your primary care physician within the week to have it rechecked when you are feeling better.
[2018-11-26 21:27] VITALS: BP 126/74
== END 2018-11-26 21:28 | disposition home or self-care (01) ==
LOC: ED 20:18
DX: S01.511A Laceration without foreign body of lip, initial encounter (principal); W45.8XXA Other foreign body or object entering through skin, initial encounter; W22.8XXA Striking against or struck by other objects, initial encounter; Y93.64 Activity, baseball; F17.200 Nicotine dependence, unspecified, uncomplicated; R03.0 Elevated blood-pressure reading, without diagnosis of hypertension
CPT/HCPCS: 12011; 99283; A9270

== ENCOUNTER 2023-04-09 19:49 | Emergency (ER) | payer OTHER ==
[2023-04-09] MEDS ORDERED: LIDOCAINE-EPINEPH-TETRACAINE 3 ML SYRINGE TOP STA (20:20)
[2023-04-09] MEDS ORDERED: TETANUS/DIPHTHERIA/PERTUSSIS 0.5 ML SYRINGE IM ONE (20:21)
--- NOTE | 2023-04-09 20:23 | ED Physician Documentation ---
PD HPI HEAD INJURY - Stated complaint Stated Complaint: HEAD INJ - Chief complaint Chief Complaint: Trauma Hd/Nk - History obtained from History obtained from: Patient - Additional information Additional information: Patient is a 43-year-old male presenting for evaluation of a head injury that occurred just prior to arrival. Patient was in his garage and excellently hit his head against an edge causing a laceration. He denies LOC. He does not take a blood thinner. He is unsure of his last tetanus. Review of Systems Skin: reports: Laceration (s) Neurologic: reports: Head injury. denies: Syncope, Headache PD PAST MEDICAL HISTORY - Past Medical History Past Medical History: Yes Cardiovascular: None Respiratory: Asthma Endocrine/Autoimmune: None GI: None : None HEENT: Other Psych: None Musculoskeletal: None Derm: None - Past Surgical History Past Surgical History: No HEENT: Tonsil/Adenoidectomy - Present Medications Home Medications: Ambulatory Orders Medication Instructions Recorded Confirmed Albuterol Sulfate [Proventil Hfa 1 - 2 puffs INH Q4H PRN #2 inhaler 02/13/17 04/21/17 Inhaler] Benzonatate [Tessalon] 100 - 200 mg PO TID PRN #20 capsule 03/13/17 04/21/17 predniSONE [Prednisone] 40 mg PO DAILY 04/05/17 04/21/17 Fluticasone/Salmeterol [Advair 1 each IH 04/21/17 250-50 Diskus] Lidocaine Patch 5% [Lidoderm Patch] 1 patch TOP DAILY PRN #10 patch 04/21/17 Oxycodone HCl/Acetaminophen 1 - 2 each PO Q6H PRN #14 tablet 04/21/17 [Percocet 5-325 mg Tablet] Lidocaine Ointment 5% [Xylocaine 1 film TOP QID PRN #1 tube 01/25/18 Ointment 5%] cephALEXin [Keflex] 500 mg PO TID #15 capsule 01/25/18 oxyCODONE/ACET 5/325 [Percocet 5 1 - 2 each PO Q6H PRN #14 tablet 01/25/18 mg/325 mg] Amox/Clav 875/125 [Augmentin] 1 each PO Q12H #14 tablet 11/26/18 Oxycodone HCl/Acetaminophen 1 - 2 each PO Q6H PRN #7 tablet 11/26/18 [Percocet 5-325 mg Tablet] - Allergies Allergies/Adverse Reactions: Allergies Allergy/AdvReac Type Severity Reaction Status Date / Time Sulfa (Sulfonamide Allergy Itching Verified 04/09/23 19:54 Antibiotics) hydrocodone [From Vicodin] AdvReac Dizziness Verified 04/09/23 19:54 tramadol AdvReac Dizziness Verified 04/09/23 19:54 - Social History Does the pt smoke?: Yes Smoking Status: Current every day smoker Does the pt drink ETOH?: No Does the pt have substance abuse?: Yes - Immunizations Immunizations are current?: Yes Immunizations: TDAP current <10years - POLST Patient has POLST: No PD ED PE NORMAL - General General: Alert and oriented X 3, No acute distress, Well developed/nourished - HEENT HEENT: PERRL, EOMI, Moist mucous membranes, Pharynx benign, Other (2 inch laceration to the top of the head) - Neck Neck: Supple, no meningeal sign, No bony TTP, C-Spine cleared by NEXUS criteria - Respiratory Respiratory: No respiratory distress - Derm Derm: Warm and dry - Neuro Neuro: Alert and oriented X 3, No motor deficit, Normal speech Eye Opening: Spontaneous Motor: Obeys Commands Verbal: Oriented GCS Score: 15 Results - Vitals Vitals: Vital Signs - 24 hr 04/09/23 04/09/23 19:54 21:21 Temperature 36.5 C Heart Rate 115 H 66 Respiratory 16 16 Rate Blood Pressure 150/90 H 140/93 H O2 Saturation 98 95 Oxygen O2 Source Room air Procedures - Laceration (location) Scalp Length in cm: 3 Wound type: Linear, Clean Anesthesia: LET, Lidocaine 1% with epi Wound preparation: Hibiclens, Irrigated copiously NS Skin layer closure: Morganza (6) Other: Patient tolerated well, No complications, Neurovascular intact, Tetanus booster given PD Medical Decision Making - ED course ED course: Patient presenting For evaluation of a laceration to the top of his head that he sustained when standing up in an area of his garage. Normal neuro exam. Does not take blood thinners. I would consider him low risk for intracranial hemorrh age and thus do not feel he needs an emergent CT scan at this time. Does not meet MIPS criteria for a head CT. Patient was given a tetanus booster. Laceration was cleaned and stapled closed. Patient understands the importance of follow-up to have michael removed as well as concerning symptoms to return for. Departure - Departure Disposition: 01 Home, Self Care Clinical Impression: Head injury, Scalp laceration Condition: Stable Instructions: ED Head Injury Closed, ED Laceration Scalp Stitch Or Stap Comments: You were treated for a laceration to your scalp that was closed with 6 michael. These should stay in for 1 week and you need to return to the emergency department or walk-in clinic or see your doctor to have them removed. Please do not try to remove them on your own. You are also given a tetanus booster today. Return to the emergency department with any worsening symptoms Such as signs of infection. Forms: PCP List Discharge Date/Time: 04/09/23 21:23
[2023-04-09 21:28] VITALS: BP 140/93; O2SAT 95
== END 2023-04-09 21:23 | disposition home or self-care (01) ==
LOC: ED 19:49
DX: S01.01XA Laceration without foreign body of scalp, initial encounter (principal); W22.8XXA Striking against or struck by other objects, initial encounter; Y92.008 Other place in unspecified non-institutional (private) residence as the place of occurrence of the external cause; F17.200 Nicotine dependence, unspecified, uncomplicated; Z23 Encounter for immunization
CPT/HCPCS: 12002; 90471; 99282; 99283